=== PATIENT | male | born 2005 | race Two or more races ===

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

== ENCOUNTER 2024-01-17 16:12 | Emergency (ER) | payer OTHER ==
[~2024-01-17] VITALS: Ht 172.7 cm; Wt 99.8 kg
[2024-01-17] MEDS ORDERED: CLIN300C12 PO (17:59)
[2024-01-17] MEDS ORDERED: CLINDAMYCIN HCL 150 MG CAPSULE ONE (18:10)
[2024-01-17] MEDS: CLINDAMYCIN HCL 150 MG CAPSULE PO ONE (18:17)
[2024-01-17 18:51] VITALS: BP 116/47; TEMP 98.3; O2SAT 98
== END 2024-01-17 18:52 | disposition home or self-care (01) ==
LOC: ER 16:19
DX: L02.31 Cutaneous abscess of buttock (principal)

== ENCOUNTER 2024-02-11 03:44 | Emergency (ER) | payer OTHER ==
[~2024-02-11] VITALS: Ht 172.7 cm; Wt 97.5 kg
[~2024-02-11 03:44] MED LIST: CLIN300C12 PO
[2024-02-11 05:36] VITALS: BP 130/74; TEMP 99.6
[2024-02-11 08:22] VITALS: O2SAT 96
== END 2024-02-11 08:22 | disposition home or self-care (01) ==
LOC: ER 03:50
DX: B34.9 Viral infection, unspecified (principal); R11.2 Nausea with vomiting, unspecified; Z20.822 Contact with and (suspected) exposure to COVID-19